=== PATIENT | male | born 1995 | race Caucasian/White ===

== ENCOUNTER 2018-01-30 20:06 | Emergency (ER) | payer MEDICAID ==
--- NOTE | 2018-01-30 20:34 | Emergency Department Record ---
History of Present Illness - General Chief Complaint: Recheck - Other Stated Complaint: RE-CHECK FACE Time Seen by Provider: 01/30/18 20:20 Source: Patient Mode of arrival: Ambulatory Limitations: No limitations - History of Present Illness Initial Comments: 22 yo male presents for a wound check and packing removal of a right sided neck abscess. He is taking his antibiotics. He reports significant improvement. No pain or swelling. No fevers. No redness. The drainage has stopped. The wound culture was reviewed. 30-40 EBCs, no organisms, in progress. Rare coag - staph. VELAZQUEZ Complaint: Wound re-check, Other (Packing removal) Onset/Timin -: Days(s) Initial Visit For: Abscess Returns Today for: Wound recheck Symptoms Since Prior Visit: Improved Associated Symptoms: None - Related Data Previous Rx's Medication Instructions Recorded Cephalexin [Keflex] 500 mg PO QID #28 cap 01/27/18 Sulfamethoxazole/Trimethoprim 1 each PO BID #14 tablet 01/27/18 [Bactrim Ds Tablet] Allergies Allergy/AdvReac Type Severity Reaction Status Date / Time Penicillins Allergy HIVES Verified 01/27/18 20:35 Travel Screening - Travel/Exposure Within Last 30 Days Have you traveled within the last 30 days?: No Review of Systems Constitutional: Denies: Chills, Fever, Weakness Eyes: Denies: Eye discharge ENT: Denies: Congestion, Throat pain Respiratory: Denies: Cough Cardiovascular: Denies: Chest pain, Syncope Endocrine: Denies: Fatigue Gastrointestinal: Denies: Abdominal pain, Diarrhea, Nausea, Vomiting Musculoskeletal: Denies: Neck pain Skin: Denies: Change in color, Rash Neurological: Denies: Headache Psychiatric: Denies: Anxiety Hematological/Lymphatic: Denies: Easy bleeding, Easy bruising Past Medical History - SOCIAL HISTORY Smoking Status: Current every day smoker Alcohol Use: None Drug Use: None - RESPIRATORY Hx Respiratory Disorders: No - CARDIOVASCULAR Hx Cardio Disorders: No - NEURO Hx Neuro Disorders: No - GI Hx GI Disorders: No - Hx Genitourinary Disorders: No - ENDOCRINE Hx Endocrine Disorders: No - MUSCULOSKELETAL Hx Musculoskeletal Disorders: No Comment:: Abscesses - PSYCH Hx Psych Problems: Yes Comment:: ADHD; Bipolar - HEMATOLOGY/ONCOLOGY Hx Hematology/Oncology Disorders: No Family Medical History Any Significant Family History?: Yes Hx HTN: Mother, Grandparents Physical Exam - General General Appearance: Alert, Oriented x3, Cooperative, No acute distress Limitations: No limitations - Head Head exam: Atraumatic, Normal inspection - Eye Eye exam: Normal appearance. negative: Conjunctival injection - ENT ENT exam: Normal exam Ear exam: Normal external inspection Nasal Exam: Normal inspection Mouth exam: Normal external inspection - Neck Neck exam: Full ROM, Other (Greatly improved abscess site, no swelling, abscess resolved, no bleeding or pus, no cellulitis. Non tender). negative: Normal inspection, Tenderness - Neurological Neurological exam: Alert, Oriented X3 - Psychiatric Psychiatric exam: Normal affect, Normal mood - Skin Skin exam: Dry, Intact, Normal color, Warm Course Vital Signs 01/30/18 20:22 Temperature 98.5 F Pulse Rate [ 96 H Pulse Ox Probe] Respiratory 20 Rate Blood Pressure 124/79 [Right Arm] Pulse Ox 99 - Reevaluation(s) Reevaluation #1: The dried crusted blood and pus were cleaned off The wound is very clean. No warmth, swelling or cellulitis The packing was removed He will do dressing changes daily and return as needed He will continue his antibiotics as directed 01/30/18 20:32 Disposition Disposition: Discharge Clinical Impression: Abscess, neck Disposition: Home, Self-Care Condition: (1) Good Instructions: Abscess Follow-up (ED) Additional Instructions: Change the bandage dressing once daily You may take a shower and clean with mild soap and water Keep covered after cleaning Take the antibiotics as directed until gone Time of Disposition: 20:34 Quality - Quality Measures Quality Measures: N/A - Blood Pressure Screening Does Patient Have Any of the Following: No Blood Pressure Classification: Pre-Hypertensive BP Reading Systolic Measurement: 124 Diastolic Measurement: 79 Screening for High Blood Pressure: < Pre-Hypertensive BP, F/U Documented > [ [id number]] Pre-Hypertensive Follow-up Interventions: Referral to alternative/primary care provider.
== END 2018-01-30 20:41 | disposition home or self-care (01) ==
LOC: ER 20:06
DX: L02.11 Cutaneous abscess of neck (principal); F17.210 Nicotine dependence, cigarettes, uncomplicated
CPT/HCPCS: 99282